=== PATIENT | female | born 1995 | race Caucasian/White ===

== ENCOUNTER 2019-08-18 09:53 | Observation (INO) ==
--- NOTE | 2019-08-15 10:35 | Anesthesiology Consultation ---
Date of Service August 15, 2019 Assessment & Plan (1) Encounter for pre-operative examination: Chart Review Chart Review: Acceptable Risk for Surgery History Surgery Operation Date: 08/18/19 11:50 Proposed Procedures p Bilateral Reduction Mammoplasty - Alison Sanderson MD Allergies Allergy/AdvReac Type Severity Reaction Status Date / Time No Known Allergies Allergy Unverified 11/22/12 09:28 Medications Home Medications Medication Instructions Recorded Confirmed Last Taken escitalopram oxalate 20 mg tablet 20 mg PO DAILY 05/21/19 05/21/19 Unknown lorazepam 2 mg tablet 2 mg PO DAILY 05/21/19 05/21/19 Unknown oxycodone-acetaminophen 5 mg-325 1 tab PO Q4H #18 tab 08/14/19 08/14/19 Unknown mg tablet Past Medical History Medical History Anxiety Depression Past Family History Family History Grandmother (Paternal) Diabetes Past Surgical History Surgical History No history of previous surgery Social History Smoking Status: Former smoker Hx Alcohol Use: Yes Hx Substance Use: Yes substance use type: marijuana Testing Laboratory Results Hb 14 Hct 41 Plts 315 INR 1.2
[~2019-08-18 09:53] MED LIST: CEFAZOLIN 2000MG 2,000 MG/15 ML SYR IV SCH; LR 15ML/HR IV SCH
[2019-08-18] MEDS ORDERED: MIDAZOLAM HCL 1 MG/ML 2ML VIAL ONE ×2 (10:52→12:01)
[2019-08-18] MEDS ORDERED: fentaNYL citrate 100 MCG/2 ML VIAL ONE (10:53)
[2019-08-18] MEDS ORDERED: PROMETHAZINE HCL 12.5 MG in SODIUM CHLORIDE 0.9% 50 ML IV PRN ×2 (11:56→16:44)
[2019-08-18] MEDS ORDERED: HYDROmorphone INJ 2 MG/ML SYR/VIAL IV PRN (11:56)
[2019-08-18] MEDS ORDERED: SCOPOLAMINE 1.5 MG TDSY TD ONE (11:56)
[2019-08-18] MEDS ORDERED: ePHEDrine sulfate 50 MG/ML AMP IV PRN (11:56)
[2019-08-18] MEDS ORDERED: fentaNYL citrate 100 MCG/2 ML VIAL IV PRN (11:56)
[2019-08-18] MEDS ORDERED: ATROPINE SULFATE 0.1 MG/ML 10ML SYR IV PRN (11:56)
[2019-08-18] MEDS ORDERED: ONDANSETRON INJ 2 MG/ML 2 ML VIAL IV PRN ×2 (11:56→16:44)
[2019-08-18] MEDS ORDERED: SCOPOLAMINE 1.5 MG TDSY ONE (11:58)
[2019-08-18] MEDS ORDERED: ACETAMINOPHEN 1000 MG/100 ML IV IV ONE (12:02)
[2019-08-18] MEDS ORDERED: LIDOCAINE/EPINEPHRINE 1% 20 ML VIAL ONE (12:03)
[2019-08-18] MEDS ORDERED: BUPIVACAINE 0.25% 30 ML VIAL ONE (12:03)
--- NOTE | 2019-08-18 12:05 | History & Physical Bridge Note ---
Date of Service August 18, 2019 History & Physical Bridge Note I have examined the patient, reviewed the History & Physical and in the interval since the performance of the History & Physical I have noted the following changes of clinical significance: no changes noted
[2019-08-18] MEDS ORDERED: KETAMINE HCL INJ 50 MG/ML 10 ML VIAL ONE (12:17)
[2019-08-18] MEDS ORDERED: GLYCOPYRROLATE 0.2 MG/ML VIAL ONE (13:19)
[2019-08-18] MEDS ORDERED: LIDOCAINE HCL 2% 2 ML VIAL/AMP(20MG/ML) INFIL ONE (13:19)
[2019-08-18] MEDS ORDERED: ONDANSETRON INJ 2 MG/ML 2 ML VIAL ONE (13:19)
[2019-08-18] MEDS ORDERED: raNITIdine HCl 25 MG/ML VIAL IV ONE (13:19)
[2019-08-18] MEDS ORDERED: PROPOFOL IV EMULSION 10 MG/ML 20 ML VIAL IV ONE (13:19)
[2019-08-18] MEDS ORDERED: METOCLOPRAMIDE HCL INJ 5 MG/ML 2 ML VIAL ONE (13:19)
[2019-08-18] MEDS ORDERED: ePHEDrine sulfate 50 MG/ML AMP ONE (13:19)
[2019-08-18] MEDS ORDERED: ROCURONIUM BROMIDE 10 MG/ML 5 ML VIAL ONE (13:19)
[2019-08-18] MEDS ORDERED: LARYING-O-JET KIT (LTA) ONE (13:19)
[2019-08-18] MEDS ORDERED: HYDROmorphone INJ 2 MG/ML SYR/VIAL ONE (13:31)
--- NOTE | 2019-08-18 15:12 | Post Operative Brief Note ---
Immediate Post Op Note v1 Date of Surgery August 18, 2019 Pre & Post Diagnosis Operation Date: 08/18/19 11:50 Pre-Op Diagnosis: Symptomatic Bilateral Macromastia Post-Op Diagnosis: Symptomatic Bilateral Macromastia I identified the patient and participated in the time-out.: Yes Procedure Operation Date: 08/18/19 11:50 Actual Procedures p Bilateral Breast Reduction (Bilateral) - Alison Sanderson MD Surgeon Alison Sanderson MD [employer] Financial Controller Elle Proctor PA-C Estimated Blood Loss 25 Findings Consistent with Post-Op Diagnosis Drains Garland-Hancock Drain (x2)
--- NOTE | 2019-08-18 15:40 | Operative Report ---
PG Post Operative Report Pre & Post Diagnosis Operation Date: 08/18/19 11:50 Pre-Op Diagnosis: Symptomatic Bilateral Macromastia Post-Op Diagnosis: Symptomatic Bilateral Macromastia I identified the patient and participated in the time-out.: Yes Procedure Operation Date: 08/18/19 11:50 Actual Procedures p Bilateral Breast Reduction (Bilateral) - Alison Sanderson MD Surgeon Alison Sanderson MD Case Operator Elle Proctor PA-C Estimated Blood Loss 25 Findings Consistent with Post-Op Diagnosis Specimens left breast tissue 346 grams, right breast tissue 310 grams Drains OMARI x2 Anesthesia Type General Complications none Indications back, neck and shoulder pain due to macromastia Description of Procedure The risks, benefits, and alternatives of the procedure were explained to the patient who agreed and signed consent. She was identified and marked in the preoperative holding area. She was brought to the operating room where she was positioned supine and placed under general anesthesia without incident. Surgical site was prepped and draped sterilely. A time-out procedure was performed. I began with the left side. Markings were reassessed and a 6 cm pedicle was mar ked. 1% lidocaine with epinephrine was used to anesthetize the planned incisions. A 38 mm cookie cutter was used to circumscribe the nipple-areolar complex. The previously marked 6 cm pedicle was incised using a 15 blade scalpel and deepithelialized. I began with the medial dissection of the pedicle using electrocautery. Cautery was used to incise through dermis and breast parenchyma down to the chest wall, taking care not to undermine the pedicle during dissection. A similar procedure was undertaken on the lateral aspect of the pedicle again taking care not to undermine. Lastly, the pedicle was dissected out superiorly using electrocautery and this was carried down to the chest wall as well. I then began with excision of the medial breast tissue followed by lateral aspect of the breast tissue and surrounding keyhole incision. A 15 blade scalpel was used to make the inframammary fold incision and electrocautery was used to deepen the incision through dermis and breast parenchyma. Dissection was then carried superiorly to the level of the superior incision. Superior incision was then incised using a 15 blade scalpel and again dissected using electrocautery. This was undertaken laterally and then around the keyhole portion of the incision. Care was taken to leave some fat on the lateral pectoralis fascia in order to protect the T4 intercostal nerve. Hemostasis was achieved with electrocautery. The specimen was passed off in its entirety for weighing. Additional resection was undertaken from the superior flap in order to facilitate closure of the breast and to provide the best shape. The total resection weight of the left breast was 346 grams. The wound was irrigated with saline and hemostasis was achieved with electrocautery. 0.25% Marcaine plain was used to anesthetize the incisions as well as the pectoralis fascia. A 15 Persian Didier drain was brought out through a separate stab incision. The nipple-areolar complex was brought into the keyhole using 2-0 Vicryl deep dermal suture. The wound was closed first in a lateral to mid breast direction and then medial to mid breast direction using 2-0 Vicryl deep dermal sutures. Vertical limb was also approximated using 2-0 Vicryl deep dermals and the nipple-areolar complex was inset using 2-0 Vicryl deep dermal sutures. Next, the superficial dermal layer was closed using 2-0 PDO running Quill suture along the inframammary fold and 3-0 PDS interrupted dermal sutures along the vertical limb and nipple- areolar complex. Lastly 3-0 Monocryl running subcuticular suture was placed. A similar procedure was undertaken on the right side with maximal excision weight of 310 grams. Breasts were symmetric and nipple-areolar complexes were viable bilaterally following wound closure. Dermabond Prineo was applied along the inframammary fold and vertical limb and Dermabond was placed around the nipple-areolar complex. Dry dressings and a surgical bra were placed. The patient was awakened and transferred to recovery room in satisfactory condition. Elle Proctor PA-C was present and scrubbed throughout the procedure and was instrumental in providing retraction during dissection of the pedicle and assisting in wound closure. I attest to the content of the Intraoperative Record and any orders documented therein. Any exceptions are noted below.
--- NOTE | 2019-08-18 16:15 | Anesthesiology Progress Note ---
Date of Service August 18, 2019 Anesthesia Post Procedure Vital Signs Vital Signs: Temp Pulse Pulse Resp BP BP Pulse Ox 08/18/19 16:00 100 H 14 101/57 L 100 08/18/19 15:50 100 H 18 110/60 100 08/18/19 15:40 91 H 18 120/71 100 08/18/19 15:30 36.2 C L 92 H 16 119/66 100 08/18/19 10:20 36.7 C 100 H 14 120/75 99 Transfer of Care Handoff Completed per policy Notes Mental Status: alert / awake / arousable and participated in evaluation Patient Amnestic to Procedure: Yes Nausea / Vomiting: adequately controlled Pain: adequately controlled Airway Patency, RR, SpO2: stable & adequate BP & HR: stable & adequate Hydration State: stable & adequate Anesthetic Complications: no major complications apparent and Pt Satisfied with anesthetic care
[2019-08-18] MEDS ORDERED: DiphenhydrAMINE HCL 50 MG/ML VIAL IV PRN (16:44)
[2019-08-18] MEDS ORDERED: MoRPHine SULFATE 4 MG/ML 1 ML CARP\\VIAL IV PRN ×2 (16:44→17:32)
[2019-08-18] MEDS ORDERED: MoRPHine SULFATE 2 MG/ML CARP IV PRN (16:44)
[2019-08-18] MEDS ORDERED: OXYCODONE/ACETAMINOPHEN 5mg/325mg TAB PO PRN ×2 (16:44)
[2019-08-18] MEDS ORDERED: OXAZEPAM 10 MG CAPSULE PO PRN (16:44)
[2019-08-18] MEDS: CHECK SCOPOLAMINE PATCH PLACEMENT SCH ×2 (17:12→23:57)
[2019-08-18] MEDS ORDERED: LORazepam 1 MG TAB PO PRN (17:36)
[2019-08-18] MEDS: D5W AND 1/2NSS + 20MEQ KCL 20 MEQ/1,000 ML BAG IV SCH (19:33)
[2019-08-18] MEDS: ACETAMINOPHEN 325 MG TAB PO PRN (19:41)
[2019-08-18] MEDS: CEFAZOLIN 2000MG 2,000 MG/15 ML SYR IV SCH (21:20)
[2019-08-19] MEDS: CEFAZOLIN 2000MG 2,000 MG/15 ML SYR IV SCH (03:56)
[2019-08-19] MEDS: ACETAMINOPHEN 325 MG TAB PO PRN ×2 (03:58→09:18)
[2019-08-19] MEDS: D5W AND 1/2NSS + 20MEQ KCL 20 MEQ/1,000 ML BAG IV SCH (06:45)
[2019-08-19] MEDS: CHECK SCOPOLAMINE PATCH PLACEMENT SCH (08:04)
--- NOTE | 2019-08-19 08:19 | Anesthesiology Progress Note ---
Date of Service August 19, 2019 Anesthesia Post Procedure Vital Signs Vital Signs: Temp Pulse Pulse Pulse Resp BP BP 08/19/19 07:27 36.7 C 87 16 91/56 L 08/19/19 03:56 36.8 C 83 16 98/59 L 08/18/19 22:50 36.9 C 97 H 16 102/64 08/18/19 19:45 36.7 C 102 H 17 97/63 L 08/18/19 18:42 36.7 C 115 H 20 104/66 08/18/19 17:45 36.5 C 102 H 17 108/70 08/18/19 17:17 36.4 C L 98 H 18 110/70 08/18/19 16:46 36.9 C 108 H 16 110/71 08/18/19 16:30 106 H 14 115/70 08/18/19 16:15 36.6 C 90 13 119/72 08/18/19 16:00 100 H 14 101/57 L 08/18/19 15:50 100 H 18 110/60 08/18/19 15:40 91 H 18 120/71 08/18/19 15:30 36.2 C L 92 H 16 119/66 08/18/19 10:20 36.7 C 100 H 14 120/75 Pulse Ox 08/19/19 07:27 97 08/19/19 03:56 99 08/18/19 22:50 98 08/18/19 19:45 97 08/18/19 18:42 98 08/18/19 17:45 100 08/18/19 17:17 100 08/18/19 16:46 99 08/18/19 16:30 100 08/18/19 16:15 100 08/18/19 16:00 100 08/18/19 15:50 100 08/18/19 15:40 100 08/18/19 15:30 100 08/18/19 10:20 99 Notes Mental Status: alert / awake / arousable and participated in evaluation Nausea / Vomiting: adequately controlled Pain: adequately controlled Airway Patency, RR, SpO2: stable & adequate BP & HR: stable & adequate Hydration State: stable & adequate Anesthetic Complications: no major complications apparent
[2019-08-19] MEDS ORDERED: ESCITALOPRAM OXALATE 20 MG TAB PO SCH (09:00)
[2019-08-19] MEDS ORDERED: MULTIVITAMIN TAB PO SCH (09:00)
--- NOTE | 2019-08-19 09:16 | Surgery Progress Note ---
Date of Service August 19, 2019 Assessment & Plan (1) Macromastia: POD #1 s/p Bilateral Breast Reduction Patient is doing very well. Pain is well-controlled with PO Tylenol. Patient is tolerating regular diet without issue. She is voiding without issue. She is ambulating in room and hallway without issue. Patient ok for discharge to home. Both verbal and written discharge instructions provided. Patient to follow-up in office tomorrow, 08/20/2019. Ruslan Hewitt is resting comfortably in bed as I entered the room. She reports that she is feeling well. She denies any pain or discomfort. She reports that her pre- surgical symptoms of neck, shoulder and back pain are improving. She has been tolerating a regular diet without issue. Physical Exam Physical Exam: On physical exam- support bra and surgical dressings in place. Dressings are clean and dry. OMARI drains x [address] with serosang drainage. Dressings pulled back slightly to see nipples. Nipples are pink, viable. Surgical drains removed today at bedside without issue. Surgical support bra reattached without issue. Results & Data Vital Signs (Past 12 Hours) Vital Signs Temp Pulse Resp BP Pulse Ox 08/19/19 07:27 36.7 C 87 16 91/56 L 97 08/19/19 03:56 36.8 C 83 16 98/59 L 99 08/18/19 22:50 36.9 C 97 H 16 102/64 98 PG Care Time/CCT Total # of Minutes Spent Total Time Spent with Patient: Total time spent is greater than 50% in coordination of care (as documented) at patient's floor/unit and/or counseling patient:
--- NOTE | 2019-08-19 13:50 | Discharge Summary ---
Date of Service August 19, 2019 Admission HPI Per Admitting Provider please see admission H & P. Admission Exam Per Admitting Provider please see admission H & P. Principal Diagnosis Bilateral Symptomatic Macromastia Discharge Data Allergies Allergy/AdvReac Type Severity Reaction Status Date / Time doxycycline AdvReac Mild Nausea Verified 08/18/19 10:16 Procedures Performed Operation Date: 08/18/19 11:50 Actual Procedures p Bilateral Breast Reduction (Bilateral) - Alison Sanderson MD Hospital Course (1) Macromastia: Marcelina is a 24 year old female with Bilateral Symptomatic Macromastia. She was taken to the OR and underwent bilateral breast reduction. There were no intraoperative complications. She was taken to recovery and transferred to med/surg for observation. On POD #1, she was feeling very good. She had minimal pain. She was tolerating a regular diet, voiding on her own, and ambulating without issue. On exam, her vitals were stable. Her incisions were clean, dry, and intact. Nipples viable. Her drains were removed without issue at bedside. She was discharged home with instructions to follow-up in the office in 1 day. All questions answered. Surgical Progress Note (08/19/2019) POD #1 s/p Bilateral Breast Reduction Patient is doing very well. Pain is well-controlled with PO Tylenol. Patient is tolerating regular diet without issue. She is voiding without issue. She is ambulating in room and hallway without issue. Patient ok for discharge to home. Both verbal and written discharge instructions provided. Patient to follow-up in office tomorrow, 08/20/2019. Total Time Total Time Spent Total Time Spent (In Minutes): 10minutes Discharge Plan Discharge Items Patient Disposition: Home - Self-Care Reason For Visit: Symptomatic Macromastia Discharge Diagnosis: Symptomatic Macromastia Activity: As commented below Non-emergency contact: Surgeon Call non-emergency contact if: you have any medication questions, your pain is not controlled, your temperature is above 101.5, your wound has increased rednes s and your wound has increased drainage Follow-up/Referrals: Juan Xiong MD [Primary Care Provider] - Diet: Regular Addtl Attending Provider Instructions: ACTIVITY RECOMMENDATIONS: __Normal activities _X_No bending, lifting or straining __No driving _X_Driving allowed when you are off pain medications _X_Walking permitted __You should have help at home for ___ days DRESSINGS: __No dressings required X__Keep dressings dry/in place until first office visit __Remove dressings ___ and leave dressings off __Apply ice ___ days __Remove dressings and reapply garment __Apply antibiotic ointment (Bacitracin, Neosporin, etc) to wounds 3-4 times/day for 10 days BATHING: _X_Keep dressings dry _X_Sponge bathing permitted- Do not get surgical dressings wet. __Showering permitted _X_No swimming, hot tubs or soaking in a tub MEDICATIONS: Resume previous medications unless instructed otherwise by your surgeon. _X_Do not use aspirin, Motrin, Advil or Ibuprofen as these may promote bleeding. Please use Tylenol. _X_Prescription(s) provided: Prescription for pain medication provided at last office visit. Please use as prescribed. SPECIAL CARE INSTRUCTIONS: * It is normal to have a mild fever after surgery. If your temperature is higher than 101.5 degrees F, please call the office at [phone]. * Constipation is a typical side effect of pain medication. An o [id number] stool softener will help relieve this. * Leaking around surgical drains may occur and should not cause concern. Sometimes these drains become clogged. If this happens, remove the bulb and milk the clot out of the tube, then replace the bulb. * Drainage from wounds after liposuction is normal and should be expected. Garments will become soiled. You should protect furniture and bedding. This drainage should mostly subside within 2-3 days. Leave garments in place unless instructed to remove them. * If you have unusual drainage from a wound or are concerned you have an infection or have any questions or concerns, please call the office at [phone]. FOLLOW UP VISIT: If not already scheduled, please call the office, , when you return home after surgery to schedule an appointment to be seen in _1__ day. Pending Studies at Discharge: Yes Studies:: Pathology report. Stand-Alone Forms: My [employer], Smoking Cessation Medications and DC Order Prescriptions: Continued escitalopram oxalate [Lexapro] 20 mg tablet 20 mg PO QAM RF: 0 lorazepam [Ativan] 2 mg tablet 2 mg PO DAILY PRN (Reason: Anxiety) RF: 0 multivitamin Tablet 1 tab PO DAILY RF: 0 Discharge Orders: Discharge Order (Routine); Ordered 08/19/19 Ordered By: Madeleine Angeles Admission Data Admit Date/Time: 08/18/19 16:44 Attending Provider: Alison Sanderson Admit Provider: Alison Sanderson Primary Care Provider: Juan Xiong Other Interventions: Discharge Summary Assessment (RN) Last Done: 08/19/19 09:01 DC Date/Time DO NOT enter until pt leaves facility: 08/19/19 09:40
== END 2019-08-19 09:40 | disposition home or self-care (01) | DRG 585 ==
LOC: ASU 09:53 → 3N 16:44 → INTOOBSV 16:44